=== PATIENT | female | born 1950 | race Caucasian/White ===

== ENCOUNTER 2020-05-21 01:55 | Outpatient (CLI) | payer MEDICARE, OTHER, SELFPAY ==
[2020-05-21 22:26] LABS: SARS-CoV-2 RNA PCR Negative
== END 2020-05-21 01:56 | disposition home or self-care (01) ==
LOC: ANHCOVIDDT 01:58
PROVIDERS: Visit Provider Surgery
DX: Z01.812 Encounter for preprocedural laboratory examination (principal); Z11.59 Encounter for screening for other viral diseases
CPT/HCPCS: 87635; C9803; U0003

== ENCOUNTER 2020-05-21 09:25 | Outpatient (CLI) | payer MEDICARE, OTHER, SELFPAY ==
[2020-05-21 10:06] LABS: Alanine Aminotransferase 39 U/L (4-35); Albumin Level 4.4 g/dL (3.5-5.1); Alkaline Phosphatase 68 U/L (38-126); Amylase 51 U/L (30-110); Aspartate Amino Transferase 39 U/L (14-36); Bilirubin,Total 0.4 mg/dL (0.2-1.3); Lipase 57 U/L (23-300)
== END 2020-05-21 09:26 | disposition home or self-care (01) ==
PROVIDERS: Visit Provider Surgery
DX: Z01.812 Encounter for preprocedural laboratory examination (principal); K80.10 Calculus of gallbladder with chronic cholecystitis without obstruction
CPT/HCPCS: 36415; 80076; 82150; 83690; 86850; 86900; 86901; 87635; C9803; U0003

== ENCOUNTER 2020-05-25 00:48 | Day surgery (SDC) | payer MEDICARE, OTHER, SELFPAY ==
[2020-05-18 13:42] VITALS: BMI 27.3
--- NOTE | 2020-05-24 13:32 | WPDANESEPPF ---
Anes - Initial Pre Proc Eval Procedure: Operation Date: 05/25/20 07:30 Proposed Procedures p Laparoscopic Cholecystectomy - Dolores Chapin MD Date/Time: 05/24/20 13:32 Surgeon: Dolores Chapin MD Pre Op Diagnosis: Chronic cholecystitis with stones Patient Data Age: 70 Gender: F Height: 1.73 m Weight: 81.65 kg Allergies Allergy/AdvReac Type Severity Reaction Status Date / Time No Known Allergies Allergy Verified 05/25/20 05:47 Home Medications Medication Instructions Recorded Confirmed Type citalopram 20 mg tablet 20 mg PO DAILY 05/13/20 05/25/20 History estradiol 0.5 mg tablet 0.75 mg PO DAILY 05/13/20 05/25/20 History ibuprofen 200 mg capsule 200 mg PO Q6H PRN 05/13/20 05/25/20 History levothyroxine 50 mcg tablet 50 mcg PO DAILY 05/13/20 05/25/20 History magnesium 30 mg tablet 30 mg PO DAILY 05/13/20 05/25/20 History multivitamin,yo-uzmh-[id number] 1 tablet PO DAILY 05/13/20 05/25/20 History Patient hx anesthesia problems: none Family hx anesthesia problems: none PMFSH Past Medical History Medical History (Updated 05/24/20 @ 13:33 by Unruly Ruffin MD) Depression High cholesterol Hypothyroidism Overweight (BMI 25.0-29.9) Surgical History Surgical History History of appendectomy History of hysterectomy History of tonsillectomy and adenoidectomy Family History Family History Father , age 86 Heart disease Mother Carcinoma of colon Hypertension Social History Social History Smoking status: Current some day smoker Tobacco type: cigars Additional smoking assessment comments: CURRENTLY SMOKES 2 CIGARS PER DAY X 10 YEARS Alcohol intake: current Living arrangements: with family Additional occupation/education comments: Realtor Spiritual care concerns: No Anes - Eval Final PreProcedure Day of Procedure 05/24/20 13:32 Patient weight: obese Heart: regular rate and rhythm Lungs: clear to auscultation and normal air movement Airway: Mallampati scale class II Neurological: alert and oriented Last oral intake: >/= 8 hours ASA classification: II Emergent: no Anesthetic plan: proceed Anesthesia type and monitoring: general ETT Informed Consent: The patient's anesthetic plan and its attendant risks and benefits were discussed with the patient/family/POA. Questions were solicited and answers provided to the satisfaction of the patient/family/POA.
[2020-05-25] VITALS (7 sets, daily range): BP systolic 113–165; BP diastolic 56–83; PULSE 53–63; RESP 12–18; TEMP 36.2–36.3; O2SAT 95–100
[2020-05-25] MEDS: ACETAMINOPHEN 500 MG TABLET 1000 MG PO (06:25)
[2020-05-25] MEDS: LACTATED RINGERS 1,000 ML 30 ML IV CONT (06:30)
[2020-05-25] MEDS: KETOROLAC 15 MG/ML VIAL (*BKC) IV PUSH (06:38)
--- NOTE | 2020-05-25 07:16 | WPDHPUPDATE1 ---
History and Physical Update Update Date/Time: 05/25/20 07:16 History and Physical has been reviewed, including an updated exam of the patient. There are NO changes in the patient's condition. Risks, benefits, and alternatives have been discussed and questions answered. Patient agrees to proceed with procedure.
[2020-05-25] MEDS: ceFAZolin 2 GM/D5W 50 ML 2 GM/50 ML BAG IVPB (07:28)
--- NOTE | 2020-05-25 08:19 | P.OP_ITS ---
Procedure Note - Detailed Date of procedure: 05/25/20 Pre-op diagnosis: Chronic cholecystitis with stones Post-op diagnosis: same Procedure performed: laparoscopic cholecystectomy Description of procedure: The patient was taken to the operating room placed in the supine position. After adequate induction of general anesthesia, the patient was prepped and draped in normal sterile fashion. A time-out was then performed to verify the patient's identity as well as the procedure being performed. I then made a 5 mm incision in the infraumbilical region. Through this, a Veress needle was placed into the peritoneal cavity and CO2 gas was then insufflated. After adequate pneumoperitoneum was achieved, the Veress needle was removed and a 5 mm trocar was placed through this incision. I then placed the laparoscope through this trocar site and under direct visualization placed a further 12 mm subxiphoid port as well as 2 additional 5 mm ports in the right upper abdomen. The gallbladder was then identified and was noted to be slightly inflamed. I was able to place a grasper at the dome of the gallbladder and this was retracted anterior and cephalad up over the liver. A 2nd retractor was then placed at the infundibulum and retracted laterally, this allowed visualization of the triangle of Calot. I then was able to visualize the cystic duct in its entirety from its proximal insertion into the gallbladder, to its distal junc tion with the common hepatic/common bile duct junction. At this point, I carefully skeletonized the proximal cystic duct with the [place] dissector. I then clipped and transected the proximal cystic duct. Next I visualized the cystic artery. Again the artery was skeletonized, clipped, and transected. I then used the Bovie cautery to take down the peritoneal attachments of the gallbladder off the liver bed. Once the gallbladder specimen was completely detached, an endo-pouch was placed through the 12 mm port site. I then placed the gallbladder specimen into the Endo pouch and removed the endo-pouch from the 12 mm port site. The specimen will now be sent to pathology for further review. I then copiously irrigated the right upper quadrant. Hemostasis was noted in the liver bed, the clips were noted to be in good position on both the cystic duct stump and the cystic artery stump. No other pathology was noted in the right upper quadrant. I then moved the laparoscope to the subxiphoid port. No iatrogenic injury or other pathology was noted in the lower abdomen. At this point, the abdomen was desufflated and all ports removed. The fascia of the 12 mm subxiphoid port was closed with a 0 Vicryl figure of 8 suture. All port sites were then closed with 4.O Monocryl subcuticular sutures. Dermabond was placed on each incision. The patient tolerated the procedure well, was extubated in the operating room postoperative and will be transferred to the recovery room in stable condition. Implants: none Anesthesia: GETA Surgeon: Dolores Chapin MD Estimated blood loss (mL): 5 Drains: No Packing: No Pathology: yes Complications: No immediate complications Condition: stable Disposition: PACU Findings: chronic cholecystitis, cholelithiasis
== END 2020-05-25 10:01 | disposition home or self-care (01) ==
PROVIDERS: Visit Provider Surgery
PROC: 0FT44ZZ Resection of Gallbladder, Percutaneous Endoscopic Approach (ICD-10-PCS; CPT 47562; principal; 2020-05-25 07:30)
DX: K80.10 Calculus of gallbladder with chronic cholecystitis without obstruction (principal); E78.5 Hyperlipidemia, unspecified; E03.9 Hypothyroidism, unspecified; F32.9 Major depressive disorder, single episode, unspecified; E66.3 Overweight; Z68.28 Body mass index [BMI] 28.0-28.9, adult; F17.290 Nicotine dependence, other tobacco product, uncomplicated; Z79.899 Other long term (current) drug therapy
CPT/HCPCS: 47562; 88304; A9270; J0690; J1100; J1885; J2250; J2405; J2704; J2710; J3010; J7030; J7120